=== PATIENT | male | born 1965 | race Caucasian/White ===

== ENCOUNTER → 2018-11-14 18:50 | Outpatient (CLI) | payer MEDICARE, MEDICAID ==
[2012-09-22 12:36] VITALS: BMI 37.6
[~2018-11-14 18:50] MED LIST: BACTRIM DS TABL1 TAB PO; CLEOCIN HCL300 MG PO; NORCO 5/325 TAB1 TA1 PO
== END | disposition home or self-care (01) ==
LOC: D.LABREF 18:50
PROVIDERS: ATTEND Urology
DX: R31.9 Hematuria, unspecified (principal)

== ENCOUNTER 2018-11-29 07:06 | Day surgery (SDC) | payer MEDICARE, MEDICAID ==
[~2018-11-29] VITALS: Ht 180.3 cm; Wt 112.5 kg
[~2018-11-29 07:06] MED LIST changes: +GLUCOPHAGE1000 MG PO
[2018-11-29 07:38] LABS: HEMATOCRIT 46.5 % (42.0-54.0); HEMOGLOBIN 15.8 g/dL (13.5-17.5); MCH 32.2 pg (26.0-34.0); MCV 94.7 fL (80.0-100.0); MEAN PLATELET VOLUME 10.5 fL (7.4-10.4); RBC 4.91 10x6/uL (4.20-6.10); RDW 13.1 % (11.5-14.5); WBC 7.2 10x3/uL (4.8-10.8)
[2018-11-29 07:44] LABS: CALC OSMOLALITY 279 mosm/kg (275-300); CALCIUM 8.6 mg/dL (8.5-10.1); CARBON DIOXIDE 29.4 mmol/L (21.0-32.0); CHLORIDE - SERUM 103 mmol/L (98-107); CREATININE - SERUM 0.7 mg/dL (0.6-1.3); GLUCOSE 175 mg/dL (74-106); POTASSIUM - SERUM 4.5 mmol/L (3.5-5.1); SODIUM 138 mmol/L (136-145); UREA NITROGEN 13 mg/dL (7-18); eGFR NON AFRICAN AMERICAN > 90 mL/min (90-120)
[2018-11-29 08:10] VITALS: BP 137/95; Ht 180.3 cm; Wt 112.5 kg
--- NOTE | 2018-11-29 12:36 | OP ---
PATIENT NAME: HARIKA MALDONADO MEDICAL RECORD: [id number] :67 LOCATION:.[facility] ADMISSION DATE: SURGEON: TAM PHILLIPS MD DATE OF OPERATION: 11/29/2018 SURGEON: Tam Phillips MD ANESTHESIA: TIVA by Gus Echavarria CRNA DIAGNOSES: Gross hematuria, hematospermia. PROCEDURE: Cystoscopy. FINDINGS: On cystoscopy, nonobstructive vascular prostate. Single ureteral orifices bilaterally with no bladder tumors. Diffusely inflamed bladder. ESTIMATED BLOOD LOSS: None. CLINICAL HISTORY: This is a 53-year-old male, who was complaining of gross hematuria and hematospermia. He has a long history of medical issues including diabetes mellitus type 2, hepatitis C, mental illness including paranoid schizophrenia and depression with 2 suicide attempts in the past. He also has substance abuse with cocaine, marijuana and methamphetamines. He is a smoker. He had a CT scan of the abdomen and pelvis ordered and so far I have not seen it done yet. He comes today for cystoscopy. He is not allergic to any medications. He was given [facility] medical concierge to the OR. DESCRIPTION OF PROCEDURE: The patient was given IV sedation. He was then placed into lithotomy position and prepped and draped. A 17-Macedonian cystoscope with 30-degree lens was used for visualization. Findings are as outlined above. No tumors were seen. The hematuria and hematospermia are most likely from the vascular prostate. The bladder was emptied and then the scope was removed. The patient will be seen in followup on a p.r.n. basis. TRANSINT:[id number] Voice Confirmation ID: [id number] DOCUMENT ID: [id number] TAM PHILLIPS MD at 1236 CC: [id number] DICTATION DATE: 11/29/18 1114 SEQU[address] WINDER: 11/29/18 [id number] [place] [address]
--- NOTE | 2018-11-29 12:44 | NUR ---
1145-DISCHARGE CRITERIA MET. REVIEWED POST OPERATIVE INSTRUCTIONS WITH PT. VERBALIZED UNDERSTANDING WITHOUT FURTHER QUESTIONS OR CONCERNS. VSS. ESCORTED OUT VIA W/C WITH FEMALE FRIEND TO DRIVE HOME
== END 2018-11-29 11:45 | disposition home or self-care (01) ==
LOC: D.OPS 07:06 → D.PAN 10:30 → D.OPS 11:45
PROVIDERS: Anesthesiology; ATTEND Urology
DX: R31.0 Gross hematuria (principal); R36.1 Hematospermia

== ENCOUNTER 2018-12-05 06:52 | Day surgery (SDC) | payer MEDICARE, MEDICAID ==
[~2018-12-05] VITALS: Ht 180.3 cm; Wt 112.5 kg
[2018-12-05 07:17] LABS: HEMATOCRIT 47.3 % (42.0-54.0); HEMOGLOBIN 16.2 g/dL (13.5-17.5); MCHC 34.2 g/dL (31.0-37.0); MCV 93.5 fL (80.0-100.0); MEAN PLATELET VOLUME 10.2 fL (7.4-10.4); RBC 5.06 10x6/uL (4.20-6.10); RDW 13.6 % (11.5-14.5); WBC 7.7 10x3/uL (4.8-10.8)
[2018-12-05 07:44] LABS: CALC OSMOLALITY 276 mosm/kg (275-300); CALCIUM 9.1 mg/dL (8.5-10.1); CARBON DIOXIDE 27.3 mmol/L (21.0-32.0); CHLORIDE - SERUM 101 mmol/L (98-107); CREATININE - SERUM 0.7 mg/dL (0.6-1.3); GLUCOSE 201 mg/dL (74-106); POTASSIUM - SERUM 4.6 mmol/L (3.5-5.1); SODIUM 136 mmol/L (136-145); UREA NITROGEN 11 mg/dL (7-18); eGFR NON AFRICAN AMERICAN > 90 mL/min (90-120)
--- NOTE | 2018-12-05 07:46 | NUR ---
DR BLACKBURN NOTIFIED ANDREVIEWED PT's BEHAVIOR AND ASSESSMENT RESULTS. PT IS A LOW RISK PER DR BLACKBURN. DR BLACKBURN STATED TO GIVE RESOURCES TO PT AT TIME OF DISCHARGE. NO FURTHER ORDERS AT THIS TIME. RESOURCES REVIEWED WITH PT AND HE VERBALIZED UNDERSTANDING.
[2018-12-05 07:59] VITALS: BP 121/79; Ht 180.3 cm; Wt 112.5 kg
[2018-12-05] MEDS ORDERED: FUROSEMIDE20 MG PO (11:39)
[2018-12-05] MEDS ORDERED: FLOMAX0.4 MG PO (11:39)
[2018-12-05] MEDS ORDERED: HYDROCODON-ACE1 EAC7 PO (11:39)
--- NOTE | 2018-12-05 12:08 | NUR ---
MEETS ANESTHESIA DISCHARGE CRITERIA
--- NOTE | 2018-12-05 13:00 | NUR ---
1215 PT IN A NOLAN TO GO HOME. C/0 PAIN TO ABDOMEN BUT SLIGHTLY SLEEPY, RECIEVED A FULL LIQ TRAY MEDICATED WITH FLOMAX AND PAIN MED
== END 2018-12-05 13:35 | disposition home or self-care (01) ==
LOC: D.OPS 06:52
PROVIDERS: Anesthesiology; ATTEND Surgery
DX: K40.20 Bilateral inguinal hernia, without obstruction or gangrene, not specified as recurrent (principal)